=== PATIENT | female | born 1980 | race Caucasian/White ===

== ENCOUNTER → 2018-05-27 | Outpatient (CLI) | payer OTHER ==
[~2018-05-27] MED LIST: AMOCLA500 PO; AMOX500 PO; ARIP10 PO; ATOM25 PO; ATOM60 PO; AZIT250 PO; BUPR150T2; CEFP200 PO; CYCL10 PO; DIAZ5 PO; DIPH50 PO; DOXY100 PO; ERGO400 PO; FERR325 PO; GABA100 PO; HYDACE5 PO; HYDACE5325 PO; HYDACE7.5 PO; HYDMOR4 PO; IBUP600; IBUP800 PO; LITH300C PO; LORA1 PO; MEBE100 PO; METCAR500 PO; METO10 PO; NAPR220; NAPR500 PO; NEOPOLHCSU OT; NORT25 PO; PENVK500 PO; PHENTERMINE; PRED20 PO; PROACE100; PROACE100 PO; PROM25 PO; PSEU30 PO; RANI150 PO; RXERYTOPTH OP; RXHYD5325 PO; RXHYDACE PO; SULTRIDS PO; TRAM50 PO; [UNRECOGNIZED DRUG - OTHER]
== END ==
LOC: LAB 17:29 → LAB SHORT 17:29
PROVIDERS: Registered Nurse Community Health
DX: Z12.4 Encounter for screening for malignant neoplasm of cervix (principal)
CPT/HCPCS: 87624; G0123

== ENCOUNTER → 2019-03-03 | Outpatient (CLI) | payer OTHER ==
[2019-03-04 16:07] LABS: HPV 16 Negative (Negative); HPV 18 Negative (Negative); HPV OTHER HR TYPES Positive (Negative)
== END ==
LOC: LAB SHORT 11:34 → LAB 11:34
PROVIDERS: Registered Nurse Community Health
DX: Z12.4 Encounter for screening for malignant neoplasm of cervix (principal)
CPT/HCPCS: 87624; 87625; G0123

== ENCOUNTER → 2019-05-21 | Outpatient (CLI) | payer OTHER ==
[~2019-05-21] MED LIST changes: +BUPR100ER PO; +Sprintec1 EACH PO
== END ==
LOC: PLD 08:22 → LAB SHORT 08:22
DX: N87.0 Mild cervical dysplasia (principal)
CPT/HCPCS: 88305

== ENCOUNTER 2019-06-26 10:40 | Day surgery (SDC) | payer OTHER ==
[~2019-06-26] VITALS: Ht 160 cm; Wt 113.6 kg
--- NOTE | 2019-06-26 12:03 | NUR ---
06/26/19 1203 Ottoniel Hernadez BETADINE TEST APPLYED IN PRE OP TO LEFT FA D/T IODINE ALLERGY. CHECK LATER WITH NO REACTION. DR. WALKER AND OR STAFF NOTIFIED.
--- NOTE | 2019-06-26 12:58 | NUR ---
06/26/19 1258 Emily Parikh PT WITH MULTIPLE BRUISES OF VARYING DEGREES OF HEALING ON HER ANTERIOR THIGHS BILATERALLY
== END 2019-06-26 15:32 | disposition home or self-care (01) ==
LOC: ORSCSDS 10:40
PROVIDERS: Obstetrics & Gynecology
PROC: 0UBC7ZX Excision of Cervix, Via Natural or Artificial Opening, Diagnostic (ICD-10-PCS; principal; 2019-06-26 12:00)
PROC: 0UB74ZZ Excision of Bilateral Fallopian Tubes, Percutaneous Endoscopic Approach (ICD-10-PCS; principal; 2019-06-26 12:00)
DX: Z30.2 Encounter for sterilization (principal); R87.612 Low grade squamous intraepithelial lesion on cytologic smear of cervix (LGSIL); N80.3 Endometriosis of pelvic peritoneum; M79.7 Fibromyalgia; F32.9 Major depressive disorder, single episode, unspecified; E66.9 Obesity, unspecified; Z68.41 Body mass index [BMI] 40.0-44.9, adult; Z79.899 Other long term (current) drug therapy; Z87.891 Personal history of nicotine dependence
CPT/HCPCS: 88302; 88307; J0171; J0690; J1100; J1885; J2250; J2405; J2704; J2710; J3010; J7120

== ENCOUNTER 2023-09-27 11:24 | Day surgery (SDC) | payer BC ==
[~2023-09-27] VITALS: Ht 160 cm; Wt 116.5 kg
[2023-09-27] MEDS ORDERED: Prinivil10 MG PO (11:41)
[2023-09-27] MEDS ORDERED: ATOMOXETINE HCL40 M1 PO (11:42)
[2023-09-27] MEDS ORDERED: SYMBICORT 16010.2 GM (11:43)
[2023-09-27] MEDS ORDERED: TIZANIDINE HCL213 PO (11:43)
[2023-09-27] MEDS ORDERED: Ventolin/Prove6.7 GM (11:43)
--- NOTE | 2023-09-27 12:41 | NUR ---
09/27/23 1241 Meghana Oseguera A PILLOW UNDER HEAD, LEFT LEG POSITIONED BY DR MILLS IN LEG FERRER, FOT OF BED DROPPED AND RIGHT LEG POSITIONED ON ON FOAM LEG FERRER, ARMS SECURED ON PADDED ARM BOARDS, SEAT BELT.
[2023-09-27 14:11] VITALS: BP 127/75
--- NOTE | 2023-09-27 14:16 | NUR ---
09/27/23 1416 Roberta Chiu PT IN RECLINER WITH AT CHAIRSIDE. VSS. PT RATES PAIN / AT THIS TIME, RN TREATING WITH PO PAIN MEDICATION PER DR'S ORDERS. PT DENIES NAUSEA. PT TOLERATING PO FLUIDS AND SNACKS WELL. POLAR UNIT ON AND RUNNING. OP LEG ELEVATED IN RECLINER. THIS RN GAVE REPORT TO [email or web address].J[facility] AT 1415.
== END 2023-09-27 14:52 | disposition home or self-care (01) ==
LOC: ORSCSDS 11:24
PROVIDERS: Orthopaedic Surgery
PROC: 0SBD4ZZ Excision of Left Knee Joint, Percutaneous Endoscopic Approach (ICD-10-PCS; principal; 2023-09-27 12:15)
DX: S83.232A Complex tear of medial meniscus, current injury, left knee, initial encounter (principal); I10 Essential (primary) hypertension; G47.33 Obstructive sleep apnea (adult) (pediatric); E66.01 Morbid (severe) obesity due to excess calories; Z68.42 Body mass index [BMI] 45.0-49.9, adult; Z79.899 Other long term (current) drug therapy
CPT/HCPCS: A9270; J0171; J0690; J1100; J2250; J2405; J2704; J2795; J3010; J7120

== ENCOUNTER → 2024-01-28 | Outpatient (CLI) | payer BC ==
[~2024-01-28] MED LIST changes: +ATOMOXETINE HCL40 M1 PO; +Prinivil10 MG PO; +SYMBICORT 16010.2 GM; +TIZANIDINE HCL213 PO; +Ventolin/Prove6.7 GM
[2024-01-28 19:46] LABS: BASOPHILS ABSOLUTE AUTO 0.04 K/mm3 (0.00-0.23); BASOPHILS PERCENT AUTO 0 % (0-2); EOSINOPHILS ABSOLUTE AUTO 0.25 K/mm3 (0.00-0.68); EOSINOPHILS PERCENT AUTO 3 % (0-6); Hematocrit 39.6 % (33.0-51.0); Hemoglobin 12.8 g/dL (11.5-16.0); IMMATURE GRAN ABSOLUTE AUTO 0.03 K/mm3 (0.00-0.10); IMMATURE GRAN PERCENT AUTO 0 % (0-1); LYMPHOCYTES ABSOLUTE AUTO 2.86 K/mm3 (0.84-5.20); LYMPHOCYTES PERCENT AUTO 32 % (21-46); MONOCYTES ABSOLUTE AUTO 0.55 K/mm3 (0.16-1.47); MONOCYTES PERCENT AUTO 6 % (4-13); Mean Corpuscular HGB Conc 32.3 g/dL (31.5-36.5); Mean Corpuscular Volume 90 fL (80-100); NEUTROPHILS ABSOLUTE AUTO 5.25 K/mm3 (1.96-9.15); NEUTROPHILS PERCENT AUTO 59 % (41-73); Platelet Count 386 K/mm3 (150-400); RDW Coefficient Variation 13.2 % (11.7-14.2); RDW Standard Deviation 43.8 fL (35.1-46.3); Red Blood Cell Count 4.41 M/mm3 (3.80-5.20); White Blood Cell Count 8.98 K/mm3 (4.00-11.30)
[2024-01-28 20:38] LABS: Alanine Aminotransfer (ALT/SGP 18 U/L (12-78); Albumin, Blood 3.7 g/dL (3.4-5.0); Albumin/Globulin Ratio 0.9 (0.8-1.8); Alk Phos 79 U/L (50-136); Anion Gap 7 mmol/L (6-16); Aspartate Aminotrans (AST/SGOT 15 U/L (12-37); Bilirubin, Total 0.3 mg/dL (0.1-1.0); Blood Urea Nitrogen 32 mg/dL (8-24); Bun/Creatinine Ratio 50.8 (12.0-20.0); CHOL/HDL RATIO 2.9; CO2, Blood 25 mmol/L (21-32); Chloride, Blood 106 mmol/L (98-108); Cholesterol 185 mg/dL (50-200); Creatinine, Blood 0.63 mg/dL (0.40-1.00); Ferritin, Serum 74 ng/mL (8-252); Globulin, Blood 3.9 g/dL (2.2-4.0); Glomerular Filtration Rate 111 (60-); Glucose, Blood 76 mg/dL (70-99); HDL Cholesterol 64 mg/dL (>39); Iron Serum 38 ug/dL (50-170); LDL/HDL RATIO 1.6; Low Density Lipoprotein Chol 105 mg/dL (0-110); Percent Saturation 11.7 % (15.0-50.0); Sodium, Blood 138 mmol/L (136-145); Total Iron Binding Capacity 324 ug/dL (250-450); Total Protein, Blood 7.6 g/dL (6.4-8.2); Triglycerides 80 mg/dL (30-160); Very Low Density Lipoprot Chol 16 mg/dL (6-32)
== END | disposition home or self-care (01) ==
LOC: LAB SHORT 19:24
PROVIDERS: Nurse Practitioner Family
DX: E61.1 Iron deficiency (principal); E66.01 Morbid (severe) obesity due to excess calories; F32.9 Major depressive disorder, single episode, unspecified; Z82.61 Family history of arthritis; Z83.3 Family history of diabetes mellitus
CPT/HCPCS: 80053; 80061; 82728; 83036; 83540; 83550; 84443; 85025; 86430

== ENCOUNTER → 2024-06-12 | Outpatient (CLI) | payer BC ==
[2024-06-12 18:22] LABS: Bacterial Vaginosis PCR Negative (NEGATIVE); Candida Group, PCR NOT DETECTED (NOT DETECT); Candida glabrata-krusei, PCR NOT DETECTED (NOT DETECT)
== END | disposition home or self-care (01) ==
LOC: LAB SHORT 16:48 → LAB 16:48
PROVIDERS: General Practice
DX: N76.0 Acute vaginitis (principal)
CPT/HCPCS: 87481; 87661; 87801

== ENCOUNTER → 2024-10-12 | Outpatient (CLI) | payer BC ==
[2024-10-12 20:28] LABS: Anion Gap 10 mmol/L (3-11); Blood Urea Nitrogen 27 mg/dL (8-24); Bun/Creatinine Ratio 42.8 (12.0-20.0); CHOL/HDL RATIO 2.5; CO2, Blood 26 mmol/L (21-32); Chloride, Blood 106 mmol/L (98-108); Cholesterol 160 mg/dL (50-200); Creatinine, Blood 0.63 mg/dL (0.40-1.00); Glomerular Filtration Rate 111 (60-); Glucose, Blood 84 mg/dL (70-99); HDL Cholesterol 63 mg/dL (>39); Low Density Lipoprotein Chol 62 mg/dL (0-110); Potassium, Blood 4.1 mmol/L (3.5-5.5); Sodium, Blood 138 mmol/L (136-145); Triglycerides 177 mg/dL (30-160); Very Low Density Lipoprot Chol 35 mg/dL (6-32)
== END ==
LOC: LAB SHORT 16:50 → LAB 16:50
PROVIDERS: Nurse Practitioner Family
DX: I10 Essential (primary) hypertension (principal); E78.5 Hyperlipidemia, unspecified
CPT/HCPCS: 80048; 80061